=== PATIENT | female | born 1985 | race Two or more races ===

== ENCOUNTER 2020-11-09 13:53 | Emergency (ER) | payer OTHER ==
[~2020-11-09] VITALS: Ht 165.1 cm; Wt 81.6 kg
[2020-11-09 13:57] VITALS: BP 135/86
--- NOTE | 2020-11-09 14:11 | NUR ---
COVID SPECIMEN OBTAINED AND SENT TO LAB.
--- NOTE | 2020-11-09 14:42 | NUR ---
RECEIVED RESULT FROM LAB: RAPID COVID NEGATIVE
--- NOTE | 2020-11-09 15:14 | NUR ---
Patient discharged in custody in stable condition. Written and verbal after care instructions given. Patient verbalizes understanding of instruction.
== END 2020-11-09 15:16 ==
LOC: ER 13:56
DX: Z04.89 Encounter for examination and observation for other specified reasons (principal); R05 Cough; Z20.822 Contact with and (suspected) exposure to COVID-19
CPT/HCPCS: 71045; 87426; 99284; C9803